=== PATIENT | female | born 1985 | race Caucasian/White ===

== ENCOUNTER 2021-03-30 23:29 | Emergency (ER) | payer MEDICAID, OTHER ==
[~2021-03-30] VITALS: Ht 170.2 cm; Wt 90.0 kg
[~2021-03-30 23:29] MED LIST: DOCU240C31 PO; IBUP-1222 PO; IBUP200C8 PO; OXYC1TAB14 PO
[2021-03-30 23:32] VITALS: BP 156/78
--- NOTE | 2021-03-30 23:53 | NUR ---
PT RESTING IN GOWN IN [facility]. PT VSS. PT EDUCATED ON ER PROCESS AND POC AND VERBALIZES UNDERSTANDING. PT PROVIDED WARM BLANKET AND CHANGED INTO GOWN AT THIS TIME.
[2021-03-31] MEDS ORDERED: IBUPROFEN 600 MG TABLET ONE (00:07)
[2021-03-31] MEDS ORDERED: ACETAMINOPHEN 500 MG TABLET ONE (00:07)
--- NOTE | 2021-03-31 00:12 | NUR ---
PT MEDICATED PER MAR AT THIS TIME.
[2021-03-31] MEDS ORDERED: ACETAMINOPHEN 500 MG TABLET PO ONE (00:30)
[2021-03-31] MEDS ORDERED: IBUPROFEN 600 MG TABLET PO ONE (00:30)
--- NOTE | 2021-03-31 02:33 | NUR ---
PT D/C WITH D/C SUMMARY AND SCRIPTS. ALL QUESTIONS ANSWERED. PT AMBULATES TO REGISTRATION DESK WITH A SLOW, BUT STEADY GAIT FOR D/C HOME WITH FAMILY. PT DENIES ANY OTHER NEEDS PERTAINING TO THIS VISIT.
== END 2021-03-31 02:38 | disposition home or self-care (01) ==
LOC: ED 03-31 02:00
DX: S39.012A Strain of muscle, fascia and tendon of lower back, initial encounter (principal); S10.93XA Contusion of unspecified part of neck, initial encounter; S40.011A Contusion of right shoulder, initial encounter; S20.211A Contusion of right front wall of thorax, initial encounter; S60.211A Contusion of right wrist, initial encounter; S50.11XA Contusion of right forearm, initial encounter; S80.12XA Contusion of left lower leg, initial encounter; S80.11XA Contusion of right lower leg, initial encounter; F17.210 Nicotine dependence, cigarettes, uncomplicated; V49.49XA Driver injured in collision with other motor vehicles in traffic accident, initial encounter; Y93.89 Activity, other specified; Y92.410 Unspecified street and highway as the place of occurrence of the external cause; Y99.8 Other external cause status
CPT/HCPCS: 71046; 72110; 99406